=== PATIENT | male | born 1950 | race Caucasian/White ===

== ENCOUNTER 2018-05-24 10:48 | Day surgery (SDC) | payer OTHER ==
[~2018-05-24] VITALS: Ht 185.4 cm; Wt 83.9 kg
[2018-05-24] MEDS ORDERED: LOVASTATIN40 MG PO (11:54)
[2018-05-24] MEDS ORDERED: CO Q-10100 MG PO (11:55)
[2018-05-24] MEDS ORDERED: SUMATRIPTAN20 MG NAS (11:55)
[2018-05-24] MEDS ORDERED: FAMOTIDINE20 MG PO (11:56)
[2018-05-24] MEDS ORDERED: [UNRECOGNIZED DRUG - OTHER] PO (11:58)
[2018-05-24] MEDS ORDERED: MOVE FREE JOIN1 EACH PO (11:59)
[2018-05-24] MEDS ORDERED: CHOLEST OFF PL450 MG PO (11:59)
--- NOTE | 2018-05-24 16:02 | NUR ---
05/24/18 1602 Dot Thakur 1549- PT ARRIVES TO PACU ALERT. PT REPORTS NO PAIN, NAUSEA, OR DIZZINESS. RESP EVEN AND UNLABORED. OXYGEN SAT MID TO HIGH 90'S ON RA. 1556- PT'S AT THE BEDSIDE. 1559- PT SIPPING ON ICE WATER. TOLERATING WELL. 1601- PT REQUESTING CRACKERS. PT GIVEN SALTINES. TOLERATING WELL.
--- NOTE | 2018-05-25 10:46 | OR ---
[facility] [place] [facility] [address], [place] [address] Signed DATE OF OPERATION: 05/24/2018 SURGEON: Amy Hendricks MD PREOPERATIVE DIAGNOSES: 1. Upper gastrointestinal pain. 2. History of recurrent diverticulitis. POSTOPERATIVE DIAGNOSES: 1. Hiatal hernia with mild chronic distal esophagitis without Will's esophagus. 2. Significant diverticular changes in sigmoid and left colon. 3. Polyps x2 (right colon, hepatic flexure). PROCEDURE: 1. Esophagogastroduodenoscopy with biopsy. 2. Total colonoscopy to cecum with cold morcellation polypectomy x2. ANESTHESIA: Intravenous sedation, fentanyl 200 mcg and Versed 10 mg (total). INDICATION: This 67-year-old white man is a patient DrNa Contreras, of [place], [place]. He had an episode in March of severe left-sided abdominal pain and found on CT scan to have acute diverticulitis with colon wall thickening and extraluminal gas bubbles, but without well-formed abscess. He was appropriately treated with antibiotic therapy. The symptoms have largely resolved. Consideration was made for colonoscopy on the basis of thickening of the colonic wall noted on CT scan. Additionally, patient has had episodic upper abdominal pain. He has taken H2 blockers empirically for this in the past and currently as well. He has undergone a gallbladder ultrasound in [place], which showed no gallstones or biliary problem particularly. He was admitted at this time to undergo upper endoscopy and colonoscopy. He understands the risks of bleeding, infection, and perforation. FINDINGS: Upper endoscopy showed a hiatal hernia, moderate in size with chronic distal esophagitis. No sign of Will's epithelium or formal stricture. Stomach and duodenum were normal. CLOtest was negative 30 minutes post procedure. On colonoscopy, the prep was good. Complete colonoscopy was undertaken to the cecum Electronically Signed By: AMY HENDRICKS MD 05/25/18 1046 PATIENT NAME: YESSICA RUVALCABA OPERATIVE REPORT DATE OF : 54 REPORT #: [id number] PHYSICIAN: AMY HENDRICKS MD PCP: AMY CONTRERAS MD REPORT IS CONFIDENTIAL AND NOT TO BE RELEASED WITHOUT AUTHORIZATION [facility] [place] [facility] [address], [place] [address] Signed without question. He had numerous diverticula in the sigmoid and left colon. Passage through the sigmoid was challenging on the basis of that. He did not have stricture per se, however. He did have 2 small polyps, most likely adenomatous region of the right colon in the distal portion and in the proximal transverse colon. They were excised without problem. DESCRIPTION OF PROCEDURE: The patient was brought to endoscopy suite, given topical Hurricaine spray hypopharyngeal anesthesia and placed in lateral decubitus position. Given intravenous sedation to the point of slurred speech and nystagmus with full cardiopulmonary monitoring. A bite block was placed. An Olympus video upper endoscope was passed in the hypopharynx. The vocal cords appeared normal. The scope was advanced to the esophagus without problem throughout its length, it was normal, but the distal portion did have mild chronic inflammatory change. There was no stricture or Will's epithelium or varices. The scope was advanced to the stomach, which was insufflated with air. Rugal folds were normal. Pylorus was normal. Minimal inflammatory change of the antrum was noted. The pylorus was traversed with the scope and 2nd, 3rd portion of the duodenum examined as was the bulbar portion and biopsies were obtained to assess for celiac disease. The scope was withdrawn to the antrum and biopsies obtained for both JESE and pathologic testing. Retroflexed view was undertaken upon withdrawal of scope showing a moderate-sized hiatal hernia. The scope was straightened withdrawn and biopsies taken of the distal esophageal mucosa. The remaining esophagus appeared normal. Plans were then made for colonoscopy. Additional sedation was given. Digital rectal examination performed and an Olympus video colonoscope passed in the rectum. Manipulation throughout the colon was accomplished after passage of a rather challenging area of the sigmoid and left colon related to diverticulosis. Once past that area, the scope was easily advanced to the cecum. Ileocecal valve and appendiceal orifice were normal. The scope was withdrawn from that point. In the distal ascending colon there was a small polyp probably adenomatous, this was excised with cold morcellation technique. Further withdrawal beyond hepatic flexure to the right transverse colon showed another similar such polyp. It too was excised with cold morcellation technique. The remaining colon and rectum were normal upon withdrawal of scope and retroflex view was well. CONCLUDING DIAGNOSIS: Hiatal hernia with mild chronic esophagitis. No sign of Will's epithelium or stricture or neoplasm. Uncertain if this is accounting for his upper abdominal symptoms. Notably, gallbladder ultrasound was normal. He does take famotidine 20 mg b.i.d. and we would recommend he continue to do that. If the H2 satnam is ineffective, consideration of changing to other medication would be appropriate. We will await the biopsies before making any change there. Electronically Signed By: AMY HENDRICKS MD 05/25/18 1046 PATIENT NAME: YESSICA RUVALCABA OPERATIVE REPORT DATE OF : 54 REPORT #: [id number] PHYSICIAN: AMY HENDRICKS MD PCP: AMY CONTRERAS MD REPORT IS CONFIDENTIAL AND NOT TO BE RELEASED WITHOUT AUTHORIZATION [facility] [address], [place] [address] Signed As regards to colon, he does have diverticular changes and had certainly advanced diverticulitis with extraluminal air only a few months ago. He appears to be symptom free now. We will review his clinical history regarding his diverticular disease. An elective colon resection is a consideration if multiple recurrent bouts of diverticulitis have been endured. We will see him back in the office in two weeks to review his pathology reports and plan going forward. MD DAYA No/AMYL /[id number] cc: Amy Contreras MD Copies: AMY CONTRERAS MD ~ Electronically Signed By: AMY HENDRICKS MD 05/25/18 1046 PATIENT NAME: YESSICA RUVALCABA OPERATIVE REPORT DATE OF : 54 REPORT #: [id number] PHYSICIAN: AMY HENDRICKS MD PCP: AMY CONTRERAS MD REPORT IS CONFIDENTIAL AND NOT TO BE RELEASED WITHOUT AUTHORIZATION
== END 2018-05-24 16:30 | disposition home or self-care (01) ==
LOC: DS 10:48 → OPS 10:48 → DS 12:00 → OPS 12:00
PROVIDERS: Surgery
PROC: 0DB38ZX Excision of Lower Esophagus, Via Natural or Artificial Opening Endoscopic, Diagnostic (ICD-10-PCS; 2018-05-24)
PROC: 0DBL8ZX Excision of Transverse Colon, Via Natural or Artificial Opening Endoscopic, Diagnostic (ICD-10-PCS; 2018-05-24)
PROC: 0DB98ZX Excision of Duodenum, Via Natural or Artificial Opening Endoscopic, Diagnostic (ICD-10-PCS; principal; 2018-05-24 11:15)
PROC: 0DB78ZX Excision of Stomach, Pylorus, Via Natural or Artificial Opening Endoscopic, Diagnostic (ICD-10-PCS; 2018-05-24 11:15)
DX: D12.3 Benign neoplasm of transverse colon (principal); K57.30 Diverticulosis of large intestine without perforation or abscess without bleeding; K29.50 Unspecified chronic gastritis without bleeding; K20.9 Esophagitis, unspecified; K44.9 Diaphragmatic hernia without obstruction or gangrene; K21.9 Gastro-esophageal reflux disease without esophagitis; E78.5 Hyperlipidemia, unspecified; Z79.899 Other long term (current) drug therapy; Z86.010 Personal history of colon polyps; Z87.891 Personal history of nicotine dependence
CPT/HCPCS: 99153; G0500; J2250; J2405; J3010; J7120

== ENCOUNTER 2021-09-12 07:05 | Day surgery (SDC) | payer MEDICARE, BC ==
[~2021-09-12] VITALS: Ht 185.4 cm; Wt 81.8 kg
[~2021-09-12 07:05] MED LIST: CHOLEST OFF PL450 MG PO; CO Q-10100 MG PO; FAMOTIDINE20 MG PO; LOVASTATIN40 MG PO; MOVE FREE JOIN1 EACH PO; SUMATRIPTAN20 MG NAS; [UNRECOGNIZED DRUG - OTHER] PO
[2021-09-12] MEDS ORDERED: LIPITOR10 MG PO (07:29)
[2021-09-12] MEDS ORDERED: VITAMIN D350 MC3 PO (07:30)
--- NOTE | 2021-09-12 08:44 | NUR ---
09/12/21 0844 Caroline García 0872 PATIENT ARRIVES TO PACU AWAKE BUT DROWSY. DENIES PAIN OR NAUSEA. RESP EVEN AND UNLABORED, OXYMASK AT 3 LITERS, TURNED OFF ON ARRIVAL TO PACU.
--- NOTE | 2021-09-14 12:11 | PATH ---
[facility] [address] [place], [place] [address] Signed SPECIMEN(S): A RIGHT COLON POLYP SPECIMEN(S): B RIGHT COLON POLYP #2 SPECIMEN(S): C CECUM COLON POLYP SPECIMEN(S): D MID DESCENDING COLON POLYP SPECIMEN SOURCE: A. RIGHT COLON POLYP B. RIGHT COLON POLYP #2 C. CECUM COLON POLYP D. MID DESCENDING COLON POLYP CLINICAL HISTORY: Colonoscopy. 2019 tubular adenoma and diverticulosis. Post: Polyps and diverticulosis. FINAL PATHOLOGIC DIAGNOSIS: A. Right colon polyp: - Tubular adenoma (one fragment). B. Right colon polyp #2: - Tubular adenoma (one fragment). C. Cecum colon polyp: - Tubular adenoma (one fragment). D. Mid descending colon polyp: - Polypoid fragment of benign colonic mucosa; negative for specific diagnostic abnormality. JVR:caw:C2NR MICROSCOPIC EXAMINATION: Histologic sections of all submitted blocks are examined by light microscopy. These findings, together with the gross examination, support the pathologic diagnosis. GROSS DESCRIPTION: Four specimens are received in four containers, labeled "ME." A. The specimen, labeled "ME, right colon polyp," is received in formalin and consists of one tracey soft tissue fragment that measures 0.1 cm in greatest dimension. The specimen is entirely submitted in cassette (A1). B. The specimen, labeled "ME, right colon polyp #2," is received in formalin and consists of one tracey soft tissue fragment that measures 0.2 cm in greatest dimension. The specimen is entirely PATIENT NAME: YESSICA RUVALCABA PATHOLOGY DATE OF : 54 REPORT #: [id number] PHYSICIAN: ALLISON BRADSHAW PCP: STEPHAN ACE REPORT IS CONFIDENTIAL AND NOT TO BE RELEASED WITHOUT AUTHORIZATION [facility] [address], [place] [address] Signed submitted in cassette (B1). C. The specimen, labeled "ME, cecum polyp," is received in formalin and consists of one tracey soft tissue fragment that measures 0.2 cm in greatest dimension. The specimen is entirely submitted in cassette (C1). D. The specimen, labeled "ME, mid descending colon polyp," is received in formalin and consists of one tracey soft tissue fragment that measures 0.2 cm in greatest dimension. The specimen is entirely submitted in cassette (D1). JS (under the direct supervision of a pathologist) The Gross Description was prepared using a voice recognition system. The report was reviewed for accuracy; however, sound-alike word errors, addition and/or deletions may occur. If there is any question about this report, please contact Client Services. PERFORMING LABORATORY: The technical component was performed by [facility], [address] [place] [id number] (CLIA# [id number]). Professional interpretation was performed by [facility], [address] [place] [id number] (CLIA#: [id number]). Diagnostician: Alfred Bennett MD Pathologist Electronically Signed 09/14/2021 Copies: ~ PATIENT NAME: YESSICA RUVALCABA PATHOLOGY DATE OF : 54 REPORT #: [id number] PHYSICIAN: ALLISON BRADSHAW PCP: STEPHAN ACE REPORT IS CONFIDENTIAL AND NOT TO BE RELEASED WITHOUT AUTHORIZATION
--- NOTE | 2021-09-16 14:04 | OR ---
[facility] [address] [place], [place] [address] Signed DATE OF OPERATION: 09/12/2021 SURGEON: Amy Hendricks MD PREOPERATIVE DIAGNOSIS: History of polyps 2019. POSTOPERATIVE DIAGNOSES: 1. Sigmoid and left-sided diverticulosis. 2. Polyps x4. PROCEDURE: Total colonoscopy to cecum with cold snare polypectomy x1 and cold morcellation polypectomy x3. ANESTHESIA: Intravenous sedation; fentanyl 100 mcg and Versed 6 mg. INDICATION: This 71-year-old white man is a patient of MARKUS Ceasr in [place], [place]. He underwent colonoscopy in 2019, at which time he was found to have tubular adenomas of the hepatic flexure and right colon. He is currently symptom free. He is admitted to undergo surveillance colonoscopy, understand the risk of bleeding, infection, and perforation. FINDINGS: The prep was good. Complete colonoscopy was undertaken to the cecum without question. He had numerous diverticula of the sigmoid and left colon. There were four polyps in total, one in the cecum, two in the right colon and one in the left colon, all excised completely. DESCRIPTION OF PROCEDURE: The patient was brought to the endoscopy suite and placed in the lateral decubitus position, given intravenous sedation to the point of slurred speech and nystagmus with full cardiopulmonary monitoring. Digital rectal examination was found to be normal. An Olympus video colonoscope was passed in the rectum and manipulated into the colon noting diverticula of the sigmoid and left colon. The scope was passed to the mid ascending colon where a small sessile polyp was noted, this was excised with cold snare technique. Specimen was passed for pathology. The scope was advanced further and Electronically Signed By: AMY HENDRICKS MD 09/16/21 1404 PATIENT NAME: YESSICA RUVALCABA OPERATIVE REPORT DATE OF : 54 REPORT #: [id number] PHYSICIAN: AMY HENDRICKS MD PCP: STEPHAN ACE REPORT IS CONFIDENTIAL AND NOT TO BE RELEASED WITHOUT AUTHORIZATION [facility] [address] [place], [place] [address] Signed another small polyp was noted in the right colon, which was similarly excised at this time with cold morcellation technique. Passage to the cecum showed a small polyp in the cecum, which was excised with cold morcellation technique as well. The scope was then withdrawn and examination undertaken showed no abnormality until the mid descending colon where a small polyp was noted, it too was excised with cold morcellation technique. Further withdrawal confirmed multiple diverticula. Retroflexed view of the rectum was normal. Scope was removed and the patient was taken to the recovery room in good condition. CONCLUDING DIAGNOSES: 1. Polyps x4 excised. 2. Diverticulosis. PLAN: Recommend high-fiber diet. Recommend also repeat colonoscopy in three years, sooner if clinically indicated. He will return to the ongoing care of MARKUS Cesar in [place], [place]. MD DAYA No/ORAL /[id number] cc: MARKUS Cesar Copies: ~ Electronically Signed By: AMY HENDRICKS MD 09/16/21 1404 PATIENT NAME: YESSICA RUVALCABA KLAUS OPERATIVE REPORT DATE OF : 54 REPORT #: [id number] PHYSICIAN: AMY HENDRICKS MD PCP: STEPHAN ACE REPORT IS CONFIDENTIAL AND NOT TO BE RELEASED WITHOUT AUTHORIZATION
== END 2021-09-12 09:05 | disposition home or self-care (01) ==
LOC: DS 07:05 → OPS 07:05 → DS 08:30 → OPS 09:05
PROVIDERS: ATTEND Surgery
PROC: 0DBH8ZX Excision of Cecum, Via Natural or Artificial Opening Endoscopic, Diagnostic (ICD-10-PCS; 2021-09-12)
PROC: 0DBF8ZX Excision of Right Large Intestine, Via Natural or Artificial Opening Endoscopic, Diagnostic (ICD-10-PCS; 2021-09-12)
PROC: 0DBM8ZX Excision of Descending Colon, Via Natural or Artificial Opening Endoscopic, Diagnostic (ICD-10-PCS; 2021-09-12)
PROC: 0DBK8ZX Excision of Ascending Colon, Via Natural or Artificial Opening Endoscopic, Diagnostic (ICD-10-PCS; principal; 2021-09-12 08:30)
DX: Z12.11 Encounter for screening for malignant neoplasm of colon (principal); D12.0 Benign neoplasm of cecum; D12.2 Benign neoplasm of ascending colon; K57.30 Diverticulosis of large intestine without perforation or abscess without bleeding; E78.5 Hyperlipidemia, unspecified; Z87.19 Personal history of other diseases of the digestive system; Z86.16 Personal history of COVID-19; Z90.49 Acquired absence of other specified parts of digestive tract
CPT/HCPCS: 88305; 99153; G0500; J2250; J3010; J7121